=== PATIENT | female | born 1985 | race Caucasian/White ===

== ENCOUNTER 2022-03-13 14:57 | Emergency (ER) | payer OTHER ==
[~2022-03-13] VITALS: Ht 149.9 cm; Wt 43.1 kg
== END 2022-03-13 15:59 | disposition left against medical advice (07) ==
LOC: ER 14:57
DX: Z48.02 Encounter for removal of sutures (principal); Z88.0 Allergy status to penicillin; Z88.1 Allergy status to other antibiotic agents; Z53.21 Procedure and treatment not carried out due to patient leaving prior to being seen by health care provider
CPT/HCPCS: 99281

== ENCOUNTER 2022-04-05 21:57 | Inpatient (IN) | payer OTHER ==
[~2022-04-05] VITALS: Ht 149.9 cm; Wt 45.7 kg
[2022-04-05 22:24] LABS: Source, Urine Voided
[2022-04-05 22:28] LABS: Bilirubin, Urine Neg (Neg); Blood, Urine 2+ (Neg); Glucose Qualitative, Urine Neg (Neg); Ketones, Urine Neg (Neg); Leukocyte Esterase, Urine 3+ (Neg); Nitrite, Urine Neg (Neg); Protein, Urine 2+ (Neg); Urobilinogen, Urine NORM (Normal)
[2022-04-05 22:40] LABS: Color, Urine Yellow (P-Yellow)
[2022-04-05 22:41] LABS: Appearance, Urine Hazy (Clear); Bacteria Few /hpf; Red Blood Cells, Urine 0-2 /hpf (0-2); Squamous Epithelial Cells Few /hpf (Few); White Blood Cells, Urine TNTC /hpf (0-5)
[2022-04-06 02:32] LABS: BASOPHILS ABSOLUTE AUTO 0.16 K/mm3 (0.00-0.23); BASOPHILS PERCENT AUTO 1 % (0-2); EOSINOPHILS ABSOLUTE AUTO 0.86 K/mm3 (0.00-0.68); EOSINOPHILS PERCENT AUTO 3 % (0-6); Hematocrit 34.8 % (33.0-51.0); Mean Corpuscular HGB Conc 31.6 g/dL (31.5-36.5); Mean Corpuscular Volume 95 fL (80-100); Mean Platelet Volume 9.6 fL (9.1-12.4); Platelet Count 565 K/mm3 (150-400); RDW Coefficient Variation 14.9 % (11.7-14.2); RDW Standard Deviation 52.7 fL (35.1-46.3); Red Blood Cell Count 3.67 M/mm3 (3.80-5.20); White Blood Cell Count 27.86 K/mm3 (4.00-11.30)
[2022-04-06 02:36] LABS: IMMATURE GRAN ABSOLUTE AUTO 0.14 K/mm3 (0.00-0.10); IMMATURE GRAN PERCENT AUTO 1 % (0-1); LYMPHOCYTES PERCENT AUTO 18 % (21-46); MONOCYTES ABSOLUTE AUTO 2.46 K/mm3 (0.16-1.47); MONOCYTES PERCENT AUTO 9 % (4-13); NEUTROPHILS ABSOLUTE AUTO 19.34 K/mm3 (1.96-9.15); NEUTROPHILS PERCENT AUTO 69 % (41-73)
[2022-04-06 03:53] LABS: Albumin, Blood 2.8 g/dL (3.4-5.0); Albumin/Globulin Ratio 0.8 (0.8-1.8); Bilirubin, Total 0.1 mg/dL (0.1-1.0); Bun/Creatinine Ratio 24.2 (12.0-20.0); Calcium, Blood 8.1 mg/dL (8.5-10.1); Creatinine, Blood 0.83 mg/dL (0.40-1.00); Globulin, Blood 3.6 g/dL (2.2-4.0); Potassium, Blood 3.9 mmol/L (3.5-5.5); Total Protein, Blood 6.4 g/dL (6.4-8.2)
[2022-04-06 11:49] LABS: U Amphetamine Screen Not Detected; U Barbituate Screen Not Detected; U Benzodiazapine Screen DETECTED; U Buprenorphine Screen Not Detected; U Cannabinoids Screen DETECTED; U Cocaine Screen Not Detected; U Methadone Screen Not Detected; U Methamphetamine Screen Not Detected; U Opiates Screen Not Detected; U Oxycodone Screen Not Detected; U Phencyclidine Screen Not Detected; U Propoxyphene Screen Not Detected
--- NOTE | 2022-04-06 18:19 | NUR ---
SHIFT SUMMARY PTN TRANSFER FROM ER FOR NEPHROSTOMY TUBE PLACEMENT. A&O X4, INDEPENDENT. L WRIST IV. NPO PRIOR TO PROCEDURE, AFTER DIET CHANGED TO REGULAR. PTN PAIN NOT COVERED BY MEDICATION ORDERED AND DR ROSA MADE CHANGES TO MEDICATION MGT. NEPHROSTOMY DRAINING CLEAR DARK COLORED URINE. NEPHROSTOMY SITE LOOKS GOOD. PTN RESTING COMFORTABLY AT END OF SHIFT. CONTINUE TO MONITOR.
--- NOTE | 2022-04-07 04:58 | NUR ---
PHYSICIAN COMMUNICATION CONTACTED DR RAMIREZ TO NOTIFY HIM THAT THE PATIENT'S PAIN IS NOT WELL CONTROLLED WITH HER CURRENT PAIN MEDICATIONS. SEE EMAR FOR ORDER.
--- NOTE | 2022-04-07 06:18 | NUR ---
SHIFT SUMMARY PATIENT ALERT AND ORIENTED. PATIENT MEDICATED PER EMAR FOR PAIN. SHE STATES THAT IT FEELS LIKE HER KIDNEY STONE IS PREVENTING HER FROM URINATING WHEN SHE SITS ON THE TOILET VERY LITTLE IS ABLE TO COME OUT. NEPHROSTOMY DRAINING CLEAR YELLOW FLUID. CALL LIGHT WITHIN REACH. REPORT GIVEN TO ONCOMING RN.
--- NOTE | 2022-04-07 07:27 | NUR ---
ASSUMED CARE: PT STANDING AT SIDE OF BED DURING BEDSIDE REPORT. STATES THAT DILUADID GREATLY RELIEVED HER PAIN. NEPHROSTOMY IN PLACE DRAINING YELLOW URINE. PT STATES SHE SEES "SMALL CHUNKS." PT STATES SHE IS NOT URINATING MUCH NOW THAT NEPHROSTOMY IS IN PLACE. DENIES FURTHER NEEDS OR CONCERNS AT THIS TIME.
[2022-04-07 08:33] LABS: Hematocrit 31.6 % (33.0-51.0); Hemoglobin 9.7 g/dL (11.5-16.0); Mean Corpuscular HGB Conc 30.7 g/dL (31.5-36.5); Mean Corpuscular Volume 98 fL (80-100); Mean Platelet Volume 10.1 fL (9.1-12.4); Platelet Count 383 K/mm3 (150-400); RDW Coefficient Variation 14.9 % (11.7-14.2); Red Blood Cell Count 3.23 M/mm3 (3.80-5.20)
[2022-04-07 08:52] LABS: Bun/Creatinine Ratio 14.8 (12.0-20.0); Creatinine, Blood 0.88 mg/dL (0.40-1.00)
--- NOTE | 2022-04-07 09:09 | NUR ---
DR STEWARD CAME TO SEE PT. SHE AND THIS RN RELAYED TO HIM THAT PT HAS BEEN UNABLE TO VOID VIA URETHRA AND ONLY VOIDING HAS BEEN THROUGH NEPHROSTOMY. PT DENIES OTHER NEEDS OR CONCERNS AT THIS TIME.
--- NOTE | 2022-04-07 10:03 | NUR ---
DR STEWARD REQUESTED BLADDER SCAN TO DETERMINE IF PT WAS RETAINING. BLADDER SCAN SHOWED 101 MLS. HAS BEEN MADE AWARE. INSTRUCTS TO CONTINUE MONITORING AT THIS TIME.
[2022-04-07] MEDS ORDERED: IBUP400 PO ×2 (17:06)
[2022-04-07] MEDS ORDERED: CEFD300 PO ×2 (17:06)
[2022-04-07] MEDS ORDERED: Acetaminophen650 M1 PO ×2 (17:06)
[2022-04-07] MEDS ORDERED: LACT PO ×2 (17:07)
[2022-04-07] MEDS ORDERED: SENN187 PO ×2 (17:07)
[2022-04-07] MEDS ORDERED: OXAYDO5 M1 PO ×2 (17:07)
[2022-04-07] MEDS ORDERED: DOCU100 PO ×2 (17:08)
--- NOTE | 2022-04-07 17:30 | NUR ---
PT PROVIDED WITH DC INSTRUCTIONS BY DR STEWARD AND THIS RN. PT PROVIDED WITH SCRIPT FOR PAIN MEDS, DISCUSSED PRESCRIBED MEDS WITH PT AND PT AWARE OF FOLLOW UP APPOINTMENTS THAT SHE NEEDS TO CALL IN. PT AWARE OF FOLLOW UP NEEDED AT [facility] FOR DRESSING CHANGES. AMBULATORY ON DISCHARGE. DENIES FURTHER NEEDS OR CONCERNS.
== END 2022-04-07 17:29 | disposition home or self-care (01) | DRG 872 ==
LOC: ER 21:57 → MEDS 04-06 08:37
PROVIDERS: Nurse Practitioner Acute Care; Physician Assistant; ADMIT Internal Medicine
PROC: 3E03329 Introduction of Other Anti-infective into Peripheral Vein, Percutaneous Approach (ICD-10-PCS; principal; 2022-04-06)
PROC: 0T773DZ Dilation of Left Ureter with Intraluminal Device, Percutaneous Approach (ICD-10-PCS; 2022-04-06)
PROC: 0T9130Z Drainage of Left Kidney with Drainage Device, Percutaneous Approach (ICD-10-PCS; 2022-04-06)
DX: A41.51 Sepsis due to Escherichia coli [E. coli] (principal); N13.6 Pyonephrosis; F17.210 Nicotine dependence, cigarettes, uncomplicated; D63.8 Anemia in other chronic diseases classified elsewhere; Z88.0 Allergy status to penicillin; Z88.1 Allergy status to other antibiotic agents; Z98.890 Other specified postprocedural states
CPT/HCPCS: 36415; 50695; 74176; 76770; 76937; 80048; 80053; 81001; 81025; 85025; 85027; 87040; 87077; 87086; 87186; 96374; 96375; 96376; 99152; 99153; 99285-25; A9270; C1729; C1769; C1887; C1894; C2617; J0696; J1170; J1885; J2250; J2405; J3010; J7030; J7040; J7050; Q9967

== ENCOUNTER 2022-04-13 20:33 | Emergency (ER) | payer OTHER ==
[~2022-04-13] VITALS: Ht 149.9 cm; Wt 47.6 kg
[~2022-04-13 20:33] MED LIST: Acetaminophen650 M1 PO; CEFD300 PO; DOCU100 PO; IBUP400 PO; LACT PO; OXAYDO5 M1 PO; SENN187 PO
[2022-04-13 21:43] LABS: Bun/Creatinine Ratio 26.7 (12.0-20.0); Calcium, Blood 10.2 mg/dL (8.5-10.1); Creatinine, Blood 0.97 mg/dL (0.40-1.00); Potassium, Blood 4.8 mmol/L (3.5-5.5)
[2022-04-13 22:04] LABS: Source, Urine Nephrostomy
[2022-04-13 22:04] LABS: Source, Urine Clean Catch
[2022-04-13 22:11] LABS: BASOPHILS ABSOLUTE AUTO 0.09 K/mm3 (0.00-0.23); BASOPHILS PERCENT AUTO 0 % (0-2); EOSINOPHILS ABSOLUTE AUTO 1.55 K/mm3 (0.00-0.68); EOSINOPHILS PERCENT AUTO 7 % (0-6); Hematocrit 38.5 % (33.0-51.0); Hemoglobin 12.1 g/dL (11.5-16.0); IMMATURE GRAN ABSOLUTE AUTO 0.12 K/mm3 (0.00-0.10); IMMATURE GRAN PERCENT AUTO 1 % (0-1); LYMPHOCYTES ABSOLUTE AUTO 7.53 K/mm3 (0.84-5.20); LYMPHOCYTES PERCENT AUTO 36 % (21-46); MONOCYTES ABSOLUTE AUTO 1.44 K/mm3 (0.16-1.47); MONOCYTES PERCENT AUTO 7 % (4-13); Mean Corpuscular HGB 29.7 pg (26.0-34.0); Mean Corpuscular HGB Conc 31.4 g/dL (31.5-36.5); Mean Corpuscular Volume 94 fL (80-100); Mean Platelet Volume 10.5 fL (9.1-12.4); NEUTROPHILS ABSOLUTE AUTO 10.11 K/mm3 (1.96-9.15); NEUTROPHILS PERCENT AUTO 49 % (41-73); Platelet Count 894 K/mm3 (150-400); RDW Coefficient Variation 15.5 % (11.7-14.2); RDW Standard Deviation 53.4 fL (35.1-46.3); Red Blood Cell Count 4.08 M/mm3 (3.80-5.20); White Blood Cell Count 20.84 K/mm3 (4.00-11.30)
[2022-04-13 22:11] LABS: Appearance, Urine Hazy (Clear); Bilirubin, Urine Neg (Neg); Blood, Urine 5+ (Neg); Color, Urine Yellow (P-Yellow); Glucose Qualitative, Urine Neg (Neg); Ketones, Urine Neg (Neg); Leukocyte Esterase, Urine 3+ (Neg); Nitrite, Urine Neg (Neg); Protein, Urine 2+ (Neg); Specific Gravity, Urine 1.015 (1.003-1.022); Urobilinogen, Urine NORM (Normal); pH, Urine 6.5 (5.0-8.0)
[2022-04-13 22:12] LABS: Appearance, Urine Hazy (Clear); Bilirubin, Urine Neg (Neg); Blood, Urine 4+ (Neg); Color, Urine Yellow (P-Yellow); Glucose Qualitative, Urine Neg (Neg); Ketones, Urine Neg (Neg); Leukocyte Esterase, Urine 3+ (Neg); Nitrite, Urine Neg (Neg); Protein, Urine 3+ (Neg); Urobilinogen, Urine NORM (Normal)
[2022-04-13 22:23] LABS: White Blood Cells, Urine 25-50 /hpf (0-5)
[2022-04-13 22:24] LABS: Squamous Epithelial Cells Rare /hpf (Few)
[2022-04-13 22:25] LABS: Bacteria Mod /hpf; Calcium Oxalate Crystals Rare /hpf; Renal Epithelial Few /hpf (0-Rare); Transitional Epithelial Cells Rare /hpf (0-Rare)
[2022-04-13 22:26] LABS: Bacteria Few /hpf; Red Blood Cells, Urine TNTC /hpf (0-2); Squamous Epithelial Cells Rare /hpf (Few)
[2022-04-13 22:26] LABS: Mucus Light (0-Heavy)
[2022-04-14] MEDS ORDERED: CIPR500 PO (02:34)
[2022-04-14] MEDS ORDERED: OXYC5 PO (02:34)
== END 2022-04-14 02:58 | disposition home or self-care (01) ==
LOC: ER 20:33
PROVIDERS: Emergency Medicine; Physician Assistant
DX: N20.2 Calculus of kidney with calculus of ureter (principal); F17.200 Nicotine dependence, unspecified, uncomplicated; Z88.0 Allergy status to penicillin; Z88.1 Allergy status to other antibiotic agents
CPT/HCPCS: 36415; 80048; 81001; 83605; 85025; 87040; 87086; 93005; 93010; 96374; 99283-25; A9270; J1956

== ENCOUNTER 2022-04-17 02:46 | Day surgery (SDC) | payer OTHER ==
[~2022-04-17 02:46] MED LIST changes: +CIPR500 PO; +OXYC5 PO
== END 2022-04-17 15:09 | disposition home or self-care (01) ==
LOC: ATC 02:46
DX: Z43.6 Encounter for attention to other artificial openings of urinary tract (principal); A41.9 Sepsis, unspecified organism; N13.6 Pyonephrosis; B96.20 Unspecified Escherichia coli [E. coli] as the cause of diseases classified elsewhere; F17.210 Nicotine dependence, cigarettes, uncomplicated; Z87.442 Personal history of urinary calculi; Z88.0 Allergy status to penicillin; Z88.1 Allergy status to other antibiotic agents; Z90.81 Acquired absence of spleen
CPT/HCPCS: 99211

== ENCOUNTER 2022-05-14 10:07 | Emergency (ER) | payer OTHER ==
[~2022-05-14] VITALS: Ht 149.9 cm; Wt 45.4 kg
[2022-05-14] MEDS ORDERED: CURAD PETROLEUM5 GM BOTHEYES ×2 (11:38→11:39)
[2022-05-14] MEDS ORDERED: NIX COMPLET324.86 ML UD ×2 (11:39)
== END 2022-05-14 11:51 | disposition home or self-care (01) ==
LOC: ER 10:07
DX: H10.9 Unspecified conjunctivitis (principal); B85.0 Pediculosis due to Pediculus humanus capitis; F17.210 Nicotine dependence, cigarettes, uncomplicated; Z79.899 Other long term (current) drug therapy; Z88.0 Allergy status to penicillin; Z88.1 Allergy status to other antibiotic agents
CPT/HCPCS: A9270

== ENCOUNTER 2022-05-14 12:00 | Day surgery (SDC) | payer OTHER ==
[~2022-05-14 12:00] MED LIST changes: +CURAD PETROLEUM5 GM BOTHEYES; +NIX COMPLET324.86 ML UD
== END 2022-05-14 12:31 | disposition home or self-care (01) ==
DX: Z43.6 Encounter for attention to other artificial openings of urinary tract (principal); Z88.0 Allergy status to penicillin; Z88.1 Allergy status to other antibiotic agents; F17.210 Nicotine dependence, cigarettes, uncomplicated; A41.9 Sepsis, unspecified organism; N13.6 Pyonephrosis

== ENCOUNTER 2022-05-20 16:26 | Emergency (ER) | payer OTHER ==
[~2022-05-20] VITALS: Ht 149.9 cm; Wt 46.3 kg
== END 2022-05-20 16:56 | disposition home or self-care (01) ==
LOC: ER 16:26
DX: T83.032A Leakage of nephrostomy catheter, initial encounter (principal); F17.210 Nicotine dependence, cigarettes, uncomplicated; Z88.0 Allergy status to penicillin; Z88.1 Allergy status to other antibiotic agents; Z79.899 Other long term (current) drug therapy; Y84.8 Other medical procedures as the cause of abnormal reaction of the patient, or of later complication, without mention of misadventure at the time of the procedure
CPT/HCPCS: 99282